=== PATIENT | male | born 2000 | race American Indian/Alaskan Native ===

== ENCOUNTER 2021-05-13 09:15 | Emergency (ER) | payer SELFPAY ==
[2021-05-13 09:21] VITALS: BP 140/71
--- NOTE | 2021-05-13 10:06 | Emergency Department Report ---
ED Headache HPI - General Chief Complaint: Headache Stated Complaint: HEADACHE Time Seen by Provider: 05/13/21 09:35 Source: patient, RN notes reviewed Exam Limitations: no limitations - History of Present Illness Initial Comments: This is a 21-year-old male nontoxic, well nourished in appearance, no acute signs of distress presents to the ED with c/o of acute on chronic headache times " several years". Currently patient denies any headaches. Patient stated last headache episode was yesterday that was brief and resolved since then. Patient describes headache as diffuse with level of 3 out of 10 intermittently when does occur. Patient denies thunderclap headache. Patient denies any radiation of pain. Patient denies any head trauma. Patient denies any visual changes. Patient denies worse headache. Patient stated that darkness makes headache better and bright lights make the headache worse. Still has some nausea associated with headaches but currently denies any nausea. Patient denies any numbness, tingling, fever, chills, nausea, vomiting, chest pain, shortness of breath, stiff neck. Patient denies facial drooping or one sided weakness. Patient denies any radiation of pain. Patient denies any allergies. Patient denies any significant past medical history. Timing/Duration: episodic Head Injury Location: other (diffuse) Recent Head Trauma: occasional headaches Associated Symptoms: denies symptoms. denies: confusion, fatigue, facial pain, fever/chills, flushing, loss of consciousness, nausea/vomiting, nasal congestion, nasal drainage, numbness in legs/feet, rash, seizures, sinus infection, stiff neck, vision changes, weakness ED Review of Systems ROS: Stated complaint: HEADACHE Other details as noted in HPI Comment: All other systems reviewed and negative Constitutional: denies: chills, fever Eyes: denies: eye pain, eye discharge, vision change ENT: denies: ear pain, throat pain Respiratory: denies: cough, shortness of breath, wheezing Cardiovascular: denies: chest pain, palpitations Endocrine: no symptoms reported Gastrointestinal: denies: abdominal pain, nausea, diarrhea Genitourinary: denies: urgency, dysuria Musculoskeletal: denies: back pain, joint swelling, arthralgia Skin: denies: rash, lesions Neurological: headache. denies: weakness, numbness, paresthesias, confusion, abnormal gait, vertigo Psychiatric: denies: anxiety, depression Hematological/Lymphatic: denies: easy bleeding, easy bruising ED Past Medical Hx - Past Medical History Previous Medical History?: No - Surgical History Past Surgical History?: No ED Physical Exam - General Limitations: No Limitations General appearance: alert, in no apparent distress - Head Head exam: Present: atraumatic, normocephalic - Eye Eye exam: Present: normal appearance, PERRL, EOMI - ENT ENT exam: Present: normal exam, normal orophraynx - Neck Neck exam: Present: normal inspection, full ROM. Absent: lymphadenopathy - Respiratory Respiratory exam: Present: normal lung sounds bilaterally. Absent: respiratory distress, wheezes, rales, rhonchi, stridor, chest wall tenderness, accessory mu scle use, decreased breath sounds, prolonged expiratory - Cardiovascular Cardiovascular Exam: Present: regular rate, normal rhythm, normal heart sounds. Absent: bradycardia, tachycardia, irregular rhythm, systolic murmur, diastolic murmur, rubs, gallop - GI/Abdominal GI/Abdominal exam: Present: soft. Absent: distended, tenderness - Extremities Exam Extremities exam: Present: normal inspection, full ROM, normal capillary refill. Absent: tenderness - Back Exam Back exam: Present: normal inspection, full ROM. Absent: tenderness, CVA tenderness (R), CVA tenderness (L), muscle spasm, paraspinal tenderness, vertebral tenderness, rash noted - Neurological Exam Neurological exam: Present: alert, oriented X3, normal gait - Expanded Neurological Exam Expanded Patient oriented to: Present: person, place, time Cranial nerves: EOM's Intact: Normal, Facial Sensation: Normal Cerebellar function: Finger to Nose: Normal Upper motor neuron: Pronator Drift: Normal, Sensory Extinction: Normal Motor strength exam: RUE: 5, LUE: 5, RLE: 5, LLE: 5 Best Eye Response (Mobile): (4) open spontaneously Best Motor Response (Neyda): (6) obeys commands Best Verbal Response (Neyda): (5) oriented Mobile Total: 15 - Psychiatric Psychiatric exam: Present: normal affect, normal mood - Skin Skin exam: Present: warm, dry, intact, normal color. Absent: rash ED Course Vital Signs 05/13/21 09:19 Temperature 98.1 F Pulse Rate 83 Respiratory 17 Rate Blood Pressure 140/71 O2 Sat by Pulse 100 Oximetry - Reevaluation(s) Reevaluation #1: 05/13/21 10:09 Patient is speaking in full sentences with no signs of distress noted. ED Medical Decision Making - Medical Decision Making This is a 21-year-old male that presents with headache. Patient is stable and was examined by me. Patient was offered a CT scan of head and laboratory examination but patient stated currently does not want any testing but wants to be evaluated. Patient was instructed that this needs to be obtained for a accurate diagnostic testing and appropriate diagnosed with patient stated he will rather follow-up with his primary care doctor. Patient is neurologically stable. There is no stiff neck or neck pain. Vital signs are stable. Patient was referred to Follow-up with a primary care/neurologist doctor in 3-5 days or if symptoms worsen and continue return to emergency room as soon as possible. At time of discharge, the patient does not seem toxic or ill in appearance. No acute signs of distress noted. Patient agrees to discharge treatment plan of care. No further questions noted by the patient. Critical care attestation.: If time is entered above; I have spent that time in minutes in the direct care of this critically ill patient, excluding procedure time. ED Disposition Clinical Impression: Chronic headache Qualifiers: Headache type: unspecified Intractability: not intractable Qualified Code(s): R51.9 - Headache, unspecified; G89.29 - Other chronic pain Disposition: 01 HOME / SELF CARE / HOMELESS Is pt being admited?: No Does the pt Need Aspirin: No Condition: Stable Additional Instructions: Follow-up with a primary care doctor and/or neurologist in 3-5 days or if symptoms worsen and continue return to emergency room as soon as possible. Referrals: MACY SALAZAR MD [Primary Care Provider] - 3-5 Days DANICA SALAS MD [Staff Physician] - 3-5 Days Time of Disposition: 10:10
== END 2021-05-13 10:27 | disposition home or self-care (01) ==
LOC: ED 09:15
DX: R51.9 Headache, unspecified (principal); G89.29 Other chronic pain
CPT/HCPCS: 99282

== ENCOUNTER 2021-05-20 08:56 | Emergency (ER) | payer SELFPAY ==
--- NOTE | 2021-05-20 10:03 | Emergency Department Report ---
HPI - General Chief Complaint: Skin/Abscess/Foreign Body Time Seen by Provider: 05/20/21 09:48 - HPI HPI: Room 39 The patient is a 21-year-old male present with a chief complaint of left groin pain and swelling. Patient states he has a "bump" in the left groin is painful to touch and movement. Patient states he tends to have them twice a month they usually pop up and then go away. The patient states they are not usually painful but this time at once. Patient states they never open up or drain. ED Past Medical Hx - Past Medical History Previous Medical History?: No - Surgical History Past Surgical History?: No - Family History Family history: no significant - Social History Smoking Status: Current Some Day Smoker (Black and milds) Substance Use Type: None (Denies illicit drug use), Alcohol (Occasional) - Medications Home Medications: Home Medications Medication Instructions Recorded Confirmed Last Taken Type Amoxicillin/Potassium Clav 1 each PO BID #20 tablet 05/20/21 Unknown Rx [Augmentin 875-125 Tablet] HYDROcodone/APAP 5-325 [[place] 1 - 2 each PO Q6HR PRN #14 tablet 05/20/21 Unknown Rx 5/325] Ibuprofen [Motrin 800 MG tab] 800 mg PO Q8HR PRN #20 tablet 05/20/21 Unknown Rx ED Review of Systems ROS: Stated complaint: BUMP NEAR MY TESTICLES Other details as noted in HPI Constitutional: no symptoms reported Eyes: denies: eye pain ENT: denies: throat pain Respiratory: no symptoms reported Cardiovascular: denies: chest pain Endocrine: no symptoms reported Gastrointestinal: denies: abdominal pain Genitourinary: denies: dysuria Musculoskeletal: denies: back pain Skin: lesions Neurological: denies: headache Physical Exam - Physical Exam Physical Exam: GENERAL: The patient is well-developed well-nourished male lying on stretcher not appearing to be in acute distress. [] HEENT: Normocephalic. Atraumatic. Extraocular motions are intact. Patient has moist mucous membranes. NECK: Supple. Trachea mid CHEST/LUNGS: There is no respiratory distress noted. SKIN: There is an approximately 2 cm region of tender induration in the left groin adjacent to the scrotum. There is no overlying erythema. There is no diaphoresis. NEURO: The patient is awake, alert, and oriented. The patient is cooperative. The patient has no focal neurologic deficits. The patient has normal speech. GCS 15 MUSCULOSKELETAL: There is no evidence of acute injury. ED Course - Consultations Consultation #1: 05/20/21 11:47 Infectious disease paged 05/20/21 12:21 Case discussed with infectious disease physician Dr. Gonzales-recommends 10-day course of Augmentin ED Medical Decision Making - Lab Data Result diagrams: 05/20/21 10:41 05/20/21 10:41 - Radiology Data Radiology results: report reviewed (Left groin ultrasound), image reviewed (Left groin ultrasound) [facility] [address] [place] [address] Ultrasound Report Signed Patient: JEAN-PAUL BUTT MR#: [id number] : 2000 Acct:[id number] Age/Sex: 21 / M ADM Date: 05/20/21 Loc: ED Att ending Dr: Ordering Physician: CAROLYN LAMAS MD Date of Service: 05/20/21 Procedure(s): US extrem nonvascular LTD Accession Number(s): [id number] cc: CAROLYN LAMAS MD ULTRASOUND LEFT GROIN HISTORY: Pain/swelling. FINDINGS: At the site of patient's palpable abnormality is a complex, partially hypoechoic area measuring 2.8 x 1.6 cm with internal areas of decreased echogenicity and peripheral increased vascularity. IMPRESSION: Complex mass at palpable site. Findings are worrisome for a suppurative node. Signer Name: Félix Ornelas MD Signed: 05/20/2021 11:32 AM Workstation Name: [id number] Transcribed By: ES Dictated By: Félix Ornelas MD Electronically Authenticated By: Félix Ornelas MD Signed Date/Time: 05/20/21 1132 DD/ 1130 TD/TT: - Differential Diagnosis Folliculitis, LGV, lymphadenopathy, abscess Critical care attestation.: If time is entered above; I have spent that time in minutes in the direct care of this critically ill patient, excluding procedure time. ED Disposition Clinical Impression: Lymphadenopathy, inguinal Disposition: 01 HOME / SELF CARE / HOMELESS Is pt being admited?: No Does the pt Need Aspirin: No Condition: Stable Instructions: Lymphadenopathy Additional Instructions: Return to the emergency department should you develop worsening symptoms, inability to tolerate food or liquids, high fever or any other concerns Prescriptions: Amoxicillin/Potassium Clav [Augmentin 875-125 Tablet] 1 each PO BID #20 tablet Ibuprofen [Motrin 800 MG tab] 800 mg PO Q8HR PRN #20 tablet PRN Reason: Pain, Moderate (4-6) HYDROcodone/APAP 5-325 [[place] 5/325] 1 - 2 each PO Q6HR PRN #14 tablet PRN Reason: Pain Referrals: PRIMARY CARE, [Primary Care Provider] - 3-5 Days [facility] [Provider Group] - 3-5 Days Time of Disposition: 12:25
[2021-05-20 11:10] LABS: Basophils % (Auto) 0.3 % (0.0-1.8); Eosinophils # (Auto) 0.2 K/mm3 (0.0-0.4); Eosinophils % (Auto) 1.8 % (0.0-4.3); Hematocrit 44.7 % (35.5-45.6); Hemoglobin 14.3 gm/dl (11.8-15.2); Lymphocytes # (Auto) 1.6 K/mm3 (1.2-5.4); Lymphocytes % (Auto) 17.6 % (13.4-35.0); Mean Corpuscular HGB Conc 32 % (32-34); Mean Corpuscular Volume 94 fl (84-94); Monocytes # (Auto) 0.8 K/mm3 (0.0-0.8); Monocytes % (Auto) 8.9 % (0.0-7.3); Platelet Count 217 K/mm3 (140-440); Red Blood Count 4.76 M/mm3 (3.65-5.03)
[2021-05-20 11:34] LABS: BUN/Creatinine Ratio 14; Blood Urea Nitrogen 11 mg/dL (9-20); Hemolysis Index 8
--- NOTE | 2021-05-20 11:37 | Ultrasound Report ---
ULTRASOUND LEFT GROIN HISTORY: Pain/swelling. FINDINGS: At the site of patient's palpable abnormality is a complex, partially hypoechoic area measu ring 2.8 x 1.6 cm with internal areas of decreased echogenicity and peripheral increased vascularity. IMPRESSION: Complex mass at palpable site. Findings are worrisome for a suppurative node. Signer Name: Félix Ornelas MD Signed: 05/20/2021 11:32 AM Workstation Name: [id number]
[2021-05-20 12:00] VITALS: BP 114/73
== END 2021-05-20 12:30 | disposition home or self-care (01) ==
LOC: ED 08:56
DX: R59.0 Localized enlarged lymph nodes (principal); F17.290 Nicotine dependence, other tobacco product, uncomplicated; Z79.899 Other long term (current) drug therapy
CPT/HCPCS: 36415; 80048; 85025; 99284